=== PATIENT | male | born 1965 ===

== ENCOUNTER 2016-12-09 11:18 | Outpatient (CLI) | payer BC, OTHER ==
[2016-12-09 12:47] LABS: #Eosinphils 0.1 thou/uL (0.0-0.7); #Lymphocytes 2.2 thou/uL (1.20-3.40); #Monocytes 0.5 thou/uL (0.11-0.59); #Neutrophils 2.3 thou/uL (1.40-6.50); %Basophils 0.7 % (0.0-1.0); %Eosinophils 2.2 % (0.0-10.0); %Monocytes 9.3 % (0.0-10.0); %Neutrophils 44.9 % (42.0-75.0); Hemoglobin 15.4 g/dL (14.0-18.0); Mean Corpuscular HGB CONC 33.9 g/dL (32.0-36.0); Mean Corpuscular Hemoglobin 33.6 pg (27.0-31.0); Mean Corpuscular Volume 99.2 fl (80.0-94.0); Mean Platelet Volume 7.1 fL (7.4-10.4); Platelet Count 232 thou/uL (130-400); RBC Distribution Width 12.4 % (11.5-14.5); Red Blood Cell (RBC) Count 4.57 mill/uL (4.70-6.10); White Blood Cell (WBC) Count 5.2 thou/uL (4.8-10.8)
[2016-12-09 12:55] LABS: ALT (SGPT) 123 U/L (8-55); AST (SGOT) 76 U/L (5-34); Alkaline Phosphatase 77 U/L (40-150); Anion Gap 14 mmol/L (10-20); BUN (Urea Nitrogen) 13 mg/dL (8.9-20.6); Bilirubin, Total 0.5 mg/dL (0.2-1.2); Calc. Creatinine Clearance 0 mL/min (70-130); Calcium 9.3 mg/dL (7.8-10.44); Cardiac Risk 3.7 (Less than 4.5); Chloride 111 mmol/L (98-107); Cholesterol 153 mg/dl (< 200 Desired); Estimated GFR-MDRD Greater than 90; Globulin 3.3 g/dL (2.4-3.5); Glucose 100 mg/dL (70-105); HDL Cholesterol 41 mg/dL (>60 Neg Risk); LDL Cholesterol, Calculated 93 mg/dL; Potassium 4.5 mmol/L (3.5-5.1); Protein, Total 7.3 g/dL (6.0-8.3); Sodium 143 mmol/L (136-145); Triglycerides 96 mg/dL (Less than 150)
[2016-12-09 13:27] LABS: Carbon Dioxide 23 mmol/L (22-29)
== END 2016-12-09 11:19 | disposition home or self-care (01) ==
LOC: HPCALD 11:18
PROVIDERS: ATTEND Physician Assistant
DX: Z00.00 Encounter for general adult medical examination without abnormal findings (principal)
CPT/HCPCS: 80053; 80061; 84443; 85025